=== PATIENT | male | born 1955 | race African-American/Black ===

== ENCOUNTER 2022-02-28 14:00 | Emergency (ER) | payer OTHER ==
[~2022-02-28] VITALS: Ht 170.2 cm; Wt 53.5 kg
[2022-02-28] MEDS ORDERED: NORFLEX100MG PO (21:49)
[2022-02-28] MEDS ORDERED: DICLOFENAC SODI75 MG PO (21:49)
== END 2022-03-01 11:04 | disposition home or self-care (01) ==
LOC: ER 14:00
DX: R10.9 Unspecified abdominal pain (principal); K29.70 Gastritis, unspecified, without bleeding; F10.20 Alcohol dependence, uncomplicated; E87.6 Hypokalemia

== ENCOUNTER 2022-10-24 13:39 | Emergency (ER) | payer OTHER ==
[~2022-10-24] VITALS: Ht 170.2 cm; Wt 47.6 kg
[~2022-10-24 13:39] MED LIST: DICLOFENAC SODI75 MG PO; NORFLEX100MG PO
== END 2022-10-24 17:50 | disposition home or self-care (01) ==
LOC: ER 13:39
DX: K29.70 Gastritis, unspecified, without bleeding (principal); E86.0 Dehydration; R11.10 Vomiting, unspecified; F10.20 Alcohol dependence, uncomplicated
CPT/HCPCS: 36415; 96365; 96372; 99284; J3490